=== PATIENT | female | born 1970 | race Caucasian/White ===

== ENCOUNTER → 2025-03-14 | Outpatient (CLI) | payer SELFPAY ==
--- NOTE | 2025-03-14 08:58 | BD_ITS ---
PROCEDURE: DEXA BONE DENSITY STUDY 03/14/2025 REASON FOR EXAM: F, age 55 y/o . TECHNIQUE: DEXA BONE DENSITY STUDY COMPARISON: None FINDINGS: BMD and T-SCORES Lumbar spine: 1.126 g/cm2, T-score 0.7 Levels: L1 through L4 Left femoral neck: 0.934 g/cm2, T-score 0.8 Femoral neck comparison data not recommended for monitoring change. Left total hip: 1.208 g/cm2, T-score 2.2 Right femoral neck: 1.031 g/cm2, T-score 1.6 Femoral neck comparison data not recommended for monitoring change. Right total hip: 1.254 g/cm2, T-score 2.6 The World Health Organization has defined the following categories based on bone density: Normal bone density: T-score equal to or greater than -1.0 Osteopenia: T-score between -1.0 and -2.5 Osteoporosis: T-score equal to or less than -2.5 BD/Dexa Bone Density Study IMPRESSION: Normal bone mineral density. Reading Location: [id number]
== END | disposition home or self-care (01) ==
PROVIDERS: Referring Provider Obstetrics & Gynecology; Visit Provider Obstetrics & Gynecology
DX: Z13.820 Encounter for screening for osteoporosis (principal); Z82.62 Family history of osteoporosis
CPT/HCPCS: 77080